=== PATIENT | female | born 1975 | race Caucasian/White ===

== ENCOUNTER 2016-12-28 18:05 | Emergency (ER) | payer SELFPAY ==
[~2016-12-28] VITALS: Ht 165.1 cm; Wt 61.2 kg
--- NOTE | 2016-12-28 18:10 | NUR ---
JANICE FROM HOME DT LUQ ABDOMINAL PAIN, 6/10, SHARP, NON RADIATING. PT ALSO REPORTED [place] AND VOMITTING GREENISH SECRETIONS. PATIENT IS AAO4. 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 PATIENT;S SKIN IS WARM TO TOUCH AND NON DIAPHORETIC. AFEBRILE. NOTED WITH MULTIPLE SKIN DISCOLORATION ALL OVER BODY. VSS
--- NOTE | 2016-12-28 18:20 | NUR ---
MD HAMMOND AT
[2016-12-28] MEDS ORDERED: IV NS 0.9% 1,000 ML ONE (18:30)
[2016-12-28] MEDS ORDERED: PANTOPRAZOLE 40 MG VIAL ONE (18:30)
[2016-12-28] MEDS ORDERED: PANTOPRAZOLE 40 MG VIAL IV ONE (18:30)
[2016-12-28] MEDS ORDERED: Thiamine 100 MG in IV D5W 50 ML IV SCH (18:30)
[2016-12-28] MEDS ORDERED: ONDANSETRON HCL/PF 4 MG/2 ML VIAL IVP ONE (18:30)
[2016-12-28] MEDS ORDERED: IV SET PRIMARY PUMP SET 1 EA INFUS.SET MC ONE ×2 (18:30→18:46)
[2016-12-28] MEDS ORDERED: IV NS 0.9% 1,000 ML BAG IV ONE (18:30)
[2016-12-28] MEDS ORDERED: ONDANSETRON HCL/PF 4 MG/2 ML VIAL ONE (18:30)
--- NOTE | 2016-12-28 18:35 | NUR ---
IV ACCESSED TO LAC 20. BLOOD SAMPLE SENT TO LAB
[2016-12-28 18:36] LABS: BASOPHILS # (AUTO) 0.1 /CMM (0.0-0.2); BASOPHILS % (AUTO) 1.3 % (0.0-2.0); EOSINOPHILS % (AUTO) 0.6 % (0.0-6.0); HEMATOCRIT 42 % (33-45); HEMOGLOBIN 13.8 g/dL (11.5-14.8); LYMPHOCYTES # (AUTO) 0.9 /CMM (0.8-4.8); LYMPHOCYTES % (AUTO) 23.5 % (20.0-44.0); MEAN CORPUSCULAR HEMOGLOBIN 34 PG (26.0-33.0); MEAN CORPUSCULAR HGB CONC 33 g/dl (31.0-36.0); MEAN CORPUSCULAR VOLUME 103 fL (82-100); MONOCYTES # (AUTO) 0.5 /CMM (0.1-1.30); MONOCYTES % (AUTO) 12.7 % (2.0-12.0); NEUTROPHILS # (AUTO) 2.5 /CMM (1.8-8.9); NEUTROPHILS % (AUTO) 61.9 % (43.0-81.0); PLATELET COUNT (AUTO) 210 /CMM (150-450); RDW COEFFICIENT OF VARIATION 13.3 (11.5-15.0); RED BLOOD CELL COUNT(AUTO) 4.09 MIL/uL (4.0-5.2)
--- NOTE | 2016-12-28 18:45 | NUR ---
CALLED PHARMACY FOR THIAMINE
[2016-12-28 18:46] LABS: CALCIUM, SERUM 9.3 mg/dL (8.5-10.1); CREATININE 0.8 mg/dL (0.6-1.3); POTASSIUM 3.4 mmol/L (3.5-5.1)
[2016-12-28 18:50] LABS: INR 0.9 (0.87-1.13); PROTHROMBIN TIME 9.3 SECS (9.5-12.7)
[2016-12-28 18:54] LABS: ALBUMIN 4.2 g/dL (3.4-5.0); BILIRUBIN,DIRECT 0.3 mg/dL (0.0-0.2); BILIRUBIN,TOTAL 0.8 mg/dL (0.2-1.0); TOTAL PROTEIN, SERUM 8.2 g/dL (6.4-8.2)
--- NOTE | 2016-12-28 19:38 | NUR ---
IV removed. Catheter intact and site benign. Pressure and 4x4 applied to site. No bleeding noted.Patient discharged to home in stable condition. Written and verbal after care instructions given. Patient verbalizes understanding of instruction and rx. pt ambulated out with a steady gait. vss.
[2016-12-28 19:46] VITALS: BP 127/81
== END 2016-12-28 19:48 | disposition home or self-care (01) ==
LOC: ER 18:05
DX: F10.10 Alcohol abuse, uncomplicated (principal); R42 Dizziness and giddiness; F32.9 Major depressive disorder, single episode, unspecified; F17.200 Nicotine dependence, unspecified, uncomplicated; Z98.890 Other specified postprocedural states
CPT/HCPCS: 36415; 80048; 80076; 82140; 83690; 85025; 85730; 96365; 96375; 99284; A4606; C9113; G0480; J2405; J3411; J7030; J7060; Z7610

== ENCOUNTER 2016-12-31 04:08 | Emergency (ER) | payer SELFPAY ==
[~2016-12-31] VITALS: Ht 152.4 cm; Wt 47.6 kg
--- NOTE | 2016-12-31 04:43 | NUR ---
PT BIB , C/O UPPER ABD PAIN, PRESSURE LIKE X 1 WK, N/V X 1 MONTH. PT AOX3 RR EVEN AND UNLABORED. NO SOB NOTED. NAD NOTED. NO NVD AT THIS TIME. PT NOT DIAPHORETIC. PT GOWNED AND PLACED ON MONITOR. WAITING FOR MD ROGEL.
--- NOTE | 2016-12-31 04:56 | NUR ---
URINE COLLECTED. 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
[2016-12-31 05:14] LABS: APPEARANCE,URINE CLOUDY (CLEAR); BILIRUBIN,URINE NEGATIVE (NEGATIVE); BLOOD, URINE NEGATIVE Ery/uL (NEGATIVE); COLOR,URINE YELLOW (YELLOW); KETONES,URINE TRACE (NEGATIVE); LEUKOCYTE ESTERASE ,URINE NEGATIVE (NEGATIVE); NITRITE, URINE NEGATIVE (NEGATIVE); PH,URINE 8.5 (5.0-8.0); PROTEIN,URINE 1+ mg/dl (NEGATIVE); UGLUCOSE NEGATIVE (NEGATIVE)
[2016-12-31 05:26] LABS: BACTERIA,URINE None seen /HPF (None Seen); PREGNANCY TEST URINE QUAL NEGATIVE (NEGATIVE); RBC,URINE NONE SEEN /HPF (0-2); SQUAMOUS EPITHELIAL CELL,UR Many /HPF (None Seen); URINE AMORPHOUS URATE Many /HPF (None Seen); WBC,URINE 0-2 /HPF (0-3)
--- NOTE | 2016-12-31 05:30 | NUR ---
PT TO CT.
--- NOTE | 2016-12-31 05:38 | NUR ---
PT RETURNED FROM CT.
--- NOTE | 2016-12-31 06:49 | NUR ---
LAB AT BEDSIDE FOR BLOOD DRAW.
[2016-12-31 06:57] LABS: BASOPHILS % (AUTO) 0.8 % (0.0-2.0); EOSINOPHILS % (AUTO) 1.1 % (0.0-6.0); HEMATOCRIT 38 % (33-45); HEMOGLOBIN 13.4 g/dL (11.5-14.8); LYMPHOCYTES # (AUTO) 0.6 /CMM (0.8-4.8); LYMPHOCYTES % (AUTO) 14.4 % (20.0-44.0); MEAN CORPUSCULAR HEMOGLOBIN 35 PG (26.0-33.0); MEAN CORPUSCULAR HGB CONC 35 g/dl (31.0-36.0); MEAN CORPUSCULAR VOLUME 101 fL (82-100); MONOCYTES # (AUTO) 0.6 /CMM (0.1-1.30); MONOCYTES % (AUTO) 12.3 % (2.0-12.0); NEUTROPHILS # (AUTO) 3.2 /CMM (1.8-8.9); NEUTROPHILS % (AUTO) 71.4 % (43.0-81.0); PLATELET COUNT (AUTO) 183 /CMM (150-450); RDW COEFFICIENT OF VARIATION 12.8 (11.5-15.0); WHITE BLOOD COUNT (AUTO) 4.5 K/uL (4.3-11.0)
[2016-12-31] MEDS ORDERED: ONDANSETRON 4 MG TAB.RAPDIS ONE (06:59)
[2016-12-31] MEDS ORDERED: IV NS 0.9% 1,000 ML BAG IV ONE (07:00)
[2016-12-31] MEDS ORDERED: ONDANSETRON 4 MG TAB.RAPDIS SL ONE (07:00)
[2016-12-31] MEDS ORDERED: ONDANSETRON HCL/PF 4 MG/2 ML VIAL IVP ONE (07:00)
--- NOTE | 2016-12-31 07:01 | NUR ---
PER DR. STRAUSS TO HOLD STARTING IV H/L AT THIS TIME.
--- NOTE | 2016-12-31 07:10 | NUR ---
REPORT GIVEN TO GENEVA BARROS FOR CONTINUE OF CARE.
--- NOTE | 2016-12-31 07:14 | NUR ---
RECEIVED PAPER COPY CT SCAN RESULTS FROM RADIOLOGY, DR. STRAUSS MADE AWARE.
[2016-12-31 07:15] LABS: ALBUMIN 3.9 g/dL (3.4-5.0); BILIRUBIN,DIRECT 0.3 mg/dL (0.0-0.2); BILIRUBIN,TOTAL 1.1 mg/dL (0.2-1.0); CALCIUM, SERUM 9.1 mg/dL (8.5-10.1); CREATININE 0.7 mg/dL (0.6-1.3); POTASSIUM 3.5 mmol/L (3.5-5.1); TOTAL PROTEIN, SERUM 7.8 g/dL (6.4-8.2)
--- NOTE | 2016-12-31 07:28 | NUR ---
DR. STRAUSS SPEAKING TO PT REGARDING RESULTS.
--- NOTE | 2016-12-31 07:44 | NUR ---
Patient discharged to home in stable condition. Written and verbal after care instructions given. Patient verbalizes understanding of instruction.
[2016-12-31 07:46] VITALS: BP 127/74
== END 2016-12-31 07:47 | disposition home or self-care (01) ==
LOC: ER 04:08
DX: N83.201 Unspecified ovarian cyst, right side (principal); F32.9 Major depressive disorder, single episode, unspecified; K70.10 Alcoholic hepatitis without ascites; R11.2 Nausea with vomiting, unspecified; K76.9 Liver disease, unspecified; F17.200 Nicotine dependence, unspecified, uncomplicated; Z98.890 Other specified postprocedural states
CPT/HCPCS: 36415; 72128-TC; 80048-TC; 80076-TC; 81000-TC; 83690-TC; 84703-TC; 85025-TC; A4606; J7030; Q0162; Z7610